=== PATIENT | male | born 1980 | race Caucasian/White ===

== ENCOUNTER → 2020-12-28 | Outpatient (CLI) | payer OTHER ==
[2014-05-25 17:30] VITALS: BP 132/82
--- NOTE | 2020-12-28 09:04 | KCIC ---
[facility] radiograph of the orbits 12/28/2020 CLINICAL HISTORY: Pre-MRI evaluation. History of metal exposure to the eyes. [facility] digital radiographs of the skull were obtained with the patient looking up and down. No radiop aque foreign body is seen involving either orbit. The visualized paranasal sinuses are clear. No frac ture is seen. IMPRESSION: No radiopaque foreign body is seen involving either orbit. Electronically signed by: Abdullahi Martin MD (12/28/2020 9:02 AM) [id number]
--- NOTE | 2020-12-28 15:36 | KCIC ---
EXAMINATION: MRI LEFT UPPER EXTREMITY JOINT WITHOUT CONTRAST INDICATIONS: Biceps tendon rupture TECHNIQUE: Multiplanar multisequence MRI of the left elbow was obtained without contrast. COMPARISON: None. FINDINGS: There is complete rupture of the biceps tendon with most of the torn tendon retracted about 10 cm to the level of the distal humeral metadiaphysis, at the upper thighs of the [id number] of the exam. There is a small amount of torn fibers that are less retracted, about 5 cm. There is fluid in the ten don gap and extending along the torn tendon. Distal brachialis tendon is intact. Triceps tendon is intact. Mild tendinopathy of the common flexor and extensor tendon origins. Ulnar collateral ligament, lateral ulnar collateral ligament, radial col lateral ligament, and annular ligament are intact. Articular cartilage is intact. Marrow signal is no rmal. There is no acute fracture. No joint effusion. Muscles are normal. IMPRESSION: Complete rupture of the distal biceps tendon with most of the torn tendon retracted about 10 cm to the level the distal humeral metadiaphysis. A small amount of torn fibers are less retracte d, about 5 cm. Electronically signed by: Ashlie Shultz MD (12/28/2020 3:34 PM) [facility]
== END ==
LOC: KCIC MRI 08:30
PROVIDERS: ATTEND Physician Assistant
DX: S46.212A Strain of muscle, fascia and tendon of other parts of biceps, left arm, initial encounter (principal); X58.XXXA Exposure to other specified factors, initial encounter; Y93.89 Activity, other specified; Y92.89 Other specified places as the place of occurrence of the external cause; Y99.8 Other external cause status
CPT/HCPCS: 70030; 73221

== ENCOUNTER → 2021-01-04 | Outpatient (CLI) | payer OTHER ==
[2014-05-25 17:30] VITALS: BP 132/82
[~2021-01-04] MED LIST: ALPR0.5T PO; LISI10TA16 PO; OXYC1TAB19 PO
== END ==
LOC: LAB 14:15
PROVIDERS: ATTEND Orthopaedic Surgery
DX: Z01.812 Encounter for preprocedural laboratory examination (principal); Z20.822 Contact with and (suspected) exposure to COVID-19
CPT/HCPCS: U0003; U0005

== ENCOUNTER 2021-01-06 11:33 | Day surgery (SDC) | payer OTHER ==
[~2021-01-06] VITALS: Ht 185.4 cm; Wt 143.0 kg
[~2021-01-06 11:33] MED LIST changes: -ALPR0.5T PO; -LISI10TA16 PO; -OXYC1TAB19 PO; +ceFAZolin SODIUM 3 GM in IV DEXTROSE 5% 100ML 100 ML IV PRN
[2021-01-06] MEDS ORDERED: LISI10TA16 PO (12:07)
[2021-01-06] MEDS ORDERED: ALPR0.5T PO (12:07)
[2021-01-06 12:10] VITALS: BP 144/88
[2021-01-06] MEDS ORDERED: ROPIVacaine 0.5% PF 20 ML VIAL. ONE (12:36)
[2021-01-06] MEDS ORDERED: MIDAZOLAM HCL/PF 2 MG/2 ML VIAL. ONE (13:35)
[2021-01-06] MEDS ORDERED: FAMOTIDINE 20 MG/2 ML VIAL ONE (13:35)
[2021-01-06] MEDS ORDERED: DEXAMETHASONE SOD PHOS 4 MG/ML VIAL ONE (13:35)
[2021-01-06] MEDS ORDERED: LIDOCAINE 2% PF 5 ML VIAL. ONE (13:40)
[2021-01-06] MEDS ORDERED: PROPOFOL 10 MG/ML (20ML) VIAL. IV ONE ×2 (13:40→13:57)
[2021-01-06] MEDS ORDERED: OXYC1TAB19 PO (13:47)
--- NOTE | 2021-01-06 13:50 | DISCH ---
DISCHARGE INSTRUCTIONS Condition on Discharge Condition on Discharge: Stable Activity After Discharge Activity Instructions for Disc: Other, see below (Gentle motion of left elbow in flexion extension as well as pronation supination (twisting motion) and fine motor use such as eating writing typing permitted) Lifting Instructions after Dis: No heavy lifting, No pulling or pushing Weight Bearing Status after Di: Non weight bearing Diet after Discharge Diet after Discharge: Regular Wound Incision Care Wound/Incision Care: Ice to area for comfort, Keep wound elevated, Change dressing (May remove dressing and 3 days may then shower no soaking until wound check on follow-up) Contacting the after DC Call your doctor for: Concerns you may have Follow-Up Follow up with: Dr. Carrillo or Bonny 10 days DANIA CARRILLO MD Jan 06, 2021 13:50
[2021-01-06] MEDS ORDERED: BUPIVACAINE MPF 0.25% 30 ML VIAL. ONE (13:57)
[2021-01-06] MEDS ORDERED: fentaNYL PF VIAL 100 MCG/2 ML VIAL ONE (14:03)
[2021-01-06] MEDS ORDERED: ONDANSETRON PF 4 MG/2 ML VIAL. ONE (14:30)
[2021-01-06] MEDS ORDERED: DEXMEDETOMIDINE 200 MCG/2 ML VIAL. IV ONE (14:30)
[2021-01-06] MEDS ORDERED: SEVOFLURANE 61 TO 120 MINUTES. IH ONE (14:30)
[2021-01-06] MEDS ORDERED: KETOROLAC 30 MG/ML VIAL. ONE (14:30)
--- NOTE | 2021-01-06 15:35 | PDOC4 ---
Operative Note Operative Note Date of surgery: 01/06/2021 Preoperative diagnosis: Left distal biceps rupture with large retraction Postoperative diagnosis: Same with retraction into mid muscle belly area Operative procedure: Left distal biceps repair Surgeon: Gerardo Assist: Mitchell Nascimento volunteer assistant Anesthesia: General plus scalene block Estimated blood loss: 20 cc Complications: None Operative locations: Please see my preoperative clinic note and note that patient is a 40-year-old male with a distal biceps rupture now about 2-1/2 weeks out who was evaluated at about the 2-week point post injury with MRI results showing 4 or more inches of retraction of the distal biceps injury and I went over with him the expected amounts of weakness of nonoperative treatment of approximately 40% loss of supination strength 20% loss of elbow flexion strength as well as possible risk benefits postoperative course of distal biceps repair including the possibility of infection nerve or blood vessel damage continued pain weakness medical other anesthetic complications stiffness among others all his questions were answered he wishes to proceed with surgical evaluation and treatment Operative text: Patient was identified procedure verified patient placed in the supine position on the operating table. After adequate amounts of general anesthesia plus a pre-existing scalene block were obtained the right upper extremity was prepped and draped in standard sterile fashion. After timeout was performed patient procedure identified and verified a transverse incision was made about 3 cm distal to the elbow flexion crease and the course of the distal biceps was identified by blunt dissection. Dissecting up the path of the distal biceps I could barely feel it with a gloved finger tip and made an additional incision over the volar surface of the upper arm and bluntly dissected to locate the biceps and trim and whipstitched the distal tendon. It was retrieved through the course in the distal incision and under direct visualization the radial tuberosity was identified drilled with a guidewire and a 9 mm [employer] drill bit and the toggle lock system with a zip loop was deployed and the whipstitch tendon was tied to the saddle area of the toggle lock and the additional sutures whipstitched up to tendon for additional reinforcement. With the elbow in flexion and full supination the toggle lock was advanced and locked with the tendon in the unicortical drilled 9 mm hole and bottomed out. Integrity of the repair was carried out and checked under full pronation supination and nearly achieved full extension of the elbow with full supination but was a bit short just due to his tightness and retraction. Excellent repair was noted irrigation carried out normal saline solution closure accomplished with buried Vicryl suture subcuticular Monocryl Steri-Strips Mastisol. Sterile soft dressings were placed and he was placed in a sling returned to recovery room in stable condition having tolerated procedure well. Mitchell lomeli was present for the procedure and assisted in patient positioning prepping draping retraction closure and dressings DANIA BARRETO MD Jan 06, 2021 15:35
[2021-01-06] MEDS ORDERED: fentaNYL PF VIAL 100 MCG/2 ML VIAL IVP PRN ×2 (15:45)
[2021-01-06] MEDS ORDERED: PROCHLORPERAZINE 10 MG/2 ML VIAL. IVP PRN (15:45)
[2021-01-06] MEDS ORDERED: IV RINGERS,LACTATED 1000ML 1,000 ML IV SCH (15:45)
[2021-01-06] MEDS ORDERED: oxyCODONE/APAP 7.5/325 1 TAB TABLET PO ONE (15:45)
[2021-01-06 15:50] VITALS: BP 160/82
== END 2021-01-06 16:30 | disposition home or self-care (01) ==
LOC: SURG 11:33
PROVIDERS: ATTEND Orthopaedic Surgery
DX: S46.212A Strain of muscle, fascia and tendon of other parts of biceps, left arm, initial encounter (principal); I10 Essential (primary) hypertension; G47.30 Sleep apnea, unspecified; F17.210 Nicotine dependence, cigarettes, uncomplicated; Z72.89 Other problems related to lifestyle; Z79.899 Other long term (current) drug therapy; Z98.890 Other specified postprocedural states; X58.XXXA Exposure to other specified factors, initial encounter; Y93.89 Activity, other specified; Y92.89 Other specified places as the place of occurrence of the external cause; Y99.8 Other external cause status
CPT/HCPCS: 24342; 64415; A4364; A4565; A4930; A6402; A6450; C1713; J1100; J1885; J2250; J2405; J2704; J2795; J3010; J3490; A4657; A6452